=== PATIENT | male | born 1965 | race Caucasian/White ===

== ENCOUNTER 2024-05-21 08:39 | Outpatient (CLI) | payer MEDICARE, OTHER | END 2024-05-21 08:40 | disposition home or self-care (01) | LOC: CSHSLEEP 08:39 | PROVIDERS: ATTEND Family Medicine | DX: G47.33 Obstructive sleep apnea (adult) (pediatric) (principal); G47.61 Periodic limb movement disorder; R53.83 Other fatigue; R09.89 Other specified symptoms and signs involving the circulatory and respiratory systems; G25.89 Other specified extrapyramidal and movement disorders; F32.A Depression, unspecified; F41.9 Anxiety disorder, unspecified; E11.9 Type 2 diabetes mellitus without complications; E66.9 Obesity, unspecified; Z68.33 Body mass index [BMI] 33.0-33.9, adult; G47.00 Insomnia, unspecified; I11.0 Hypertensive heart disease with heart failure; I50.9 Heart failure, unspecified | CPT/HCPCS: 95800 ==